=== PATIENT | male | born 1945 | race Caucasian/White ===

== ENCOUNTER 2018-08-12 11:24 | Inpatient (IN) | payer MEDICARE, OTHER ==
[~2018-08-12] VITALS: Ht 175.3 cm; Wt 105.5 kg
[2018-08-12] MEDS ORDERED: METO25TA6 PO (11:34)
[2018-08-12 14:11] LABS: HEMATOCRIT. 42.2 % (42.0-52.0); HEMOGLOBIN. 14.2 g/dL (14.0-18.0); MEAN CORPUSCULAR HEMOGLOBIN 32.1 pg (28.0-32.0); MEAN CORPUSCULAR VOLUME 95.8 fL (80.0-94.0); MEAN PLATELET VOLUME 8.4 fl (7.4-10.4); PLATELET 212 x1000/uL (130-400); RED BLOOD CELL COUNT 4.41 mill/uL (4.7-6.1); RED CELL DISTRIBUTION WIDTH 13.8 % (11.6-14.6)
[2018-08-12 14:17] LABS: CHLORIDE 104 mEq/L (98-107)
[2018-08-12 14:20] LABS: ETHANOL BLOOD < 10 mg/dL
[2018-08-12 14:41] LABS: PLATELET ESTIMATE NORMAL
[2018-08-12 17:03] LABS: CLARITY URINE CLEAR (CLEAR); COLOR URINE YELLOW (YELLOW); KETONES URINE NEGATIVE (NEGATIVE); LEUKOCYTE ESTERASE URINE NEGATIVE (NEGATIVE); NITRITE URINE NEGATIVE (NEGATIVE); OCCULT BLOOD URINE 1+ (NEGATIVE); PH URINE 7.5 (4.5-8.0); PROTEIN URINE 1+ (NEGATIVE); SPECIFIC GRAVITY URINE 1.004 (1.005-1.030); UROBILINOGEN URINE 0.2 E.U./dL (0.2-1.0)
[2018-08-12 17:22] LABS: OPIATES URINE SCREEN NEGATIVE (NEGATIVE)
[2018-08-12 17:23] LABS: *AMPHETAMINES SCREEN URINE NEGATIVE (NEGATIVE); *BARBITURATES SCREEN URINE NEGATIVE (NEGATIVE); *BENZODIAZEPINES SCREEN URINE NEGATIVE (NEGATIVE); *COCAINE SCREEN URINE NEGATIVE (NEGATIVE); CANNABINOID URINE SCREEN NEGATIVE (NEGATIVE); METHADONE URINE SCREEN NEGATIVE (NEGATIVE); PHENCYCLIDINE URINE SCREEN NEGATIVE (NEGATIVE)
[2018-08-12] MEDS ORDERED: CLONIDINE 0.1MG TABLET PO PRN (21:30)
[2018-08-12] MEDS ORDERED: ACETAMINOPHEN 325MG TABLET PO PRN (21:30)
[2018-08-12] MEDS ORDERED: GUAIFENESIN 200MG/10ML SUGAR FREE UDC PO PRN (21:30)
[2018-08-12] MEDS ORDERED: IPRATROPIUM/ALBUTEROL 0.5-3(2.5)MG/3ML NEB INH PRN (21:30)
[2018-08-12] MEDS ORDERED: ONDANSETRON HCL 4MG/2ML INJ IV PRN (21:30)
[2018-08-12 23:45] VITALS: BP 102/75
[2018-08-13 04:00] VITALS: BP 130/66
[2018-08-13 07:08] LABS: BASOPHILS % 0.8 % (0.0-2.0); EOSINOPHILS % 1.5 % (0.0-5.0); HEMATOCRIT. 40.4 % (42.0-52.0); LYMPHOCYTES % 12.7 % (20.0-50.0); MEAN CORPUSCULAR HEMOGLOBIN 33.2 pg (28.0-32.0); MEAN CORPUSCULAR VOLUME 95.9 fL (80.0-94.0); MEAN PLATELET VOLUME 8.5 fl (7.4-10.4); MONOCYTES % 10.9 % (2.0-8.0); NEUTROPHILS % 74.1 % (40.0-76.0); PLATELET 195 x1000/uL (130-400); RED BLOOD CELL COUNT 4.22 mill/uL (4.7-6.1); RED CELL DISTRIBUTION WIDTH 14.1 % (11.6-14.6)
[2018-08-13 07:12] LABS: CHLORIDE 108 mEq/L (98-107)
[2018-08-13 08:00] VITALS: BP 154/78
[2018-08-13] MEDS ORDERED: PNEUMOCOCCAL 23-VAL P-SAC VAC 0.5 ML IM ONE (08:00)
[2018-08-13] MEDS ORDERED: INFLUENZA VIRUS VACCINE(AFLURIA) 0.5ML SYR IM ONE (10:00)
[2018-08-13 12:00] VITALS: BP 149/80
[2018-08-13 16:00] VITALS: BP 150/80
[2018-08-13] MEDS: TRAMADOL 50MG TABLET PO PRN (18:04)
[2018-08-13 20:00] VITALS: BP 153/79
[2018-08-13] MEDS ORDERED: IRON SUCROSE COMPLEX 100 MG/5 ML ML IV NR (20:00)
[2018-08-13] MEDS: VALPROIC ACID 250MG CAPSULE PO SCH (20:47)
[2018-08-13] MEDS: ATORVASTATIN CALCIUM 20MG TABLET PO SCH (20:47)
[2018-08-13] MEDS: RISPERIDONE 1MG TABLET PO SCH (20:48)
[2018-08-13] MEDS: METOPROLOL TARTRATE 25MG TABLET PO SCH (20:48)
[2018-08-13] MEDS: MAGNESIUM/ALUMINUM HYDROXIDE/SIMETHICONE 30ML UDC PO PRN (23:09)
[2018-08-14] VITALS: BP 139/72
[2018-08-14 04:21] VITALS: BP 117/65
[2018-08-14 08:00] VITALS: BP 145/73
[2018-08-14] MEDS ORDERED: PANTOPRAZOLE 40MG DR TABLET PO SCH (09:00)
[2018-08-14] MEDS: DOCUSATE SODIUM 100MG CAPSULE PO SCH ×2 (09:45→18:03)
[2018-08-14] MEDS: AMLODIPINE 2.5MG TABLET PO SCH (09:45)
[2018-08-14] MEDS: CHOLECALCIFEROL (D3) 1000 UNIT TABLET PO SCH (09:45)
[2018-08-14] MEDS: METOPROLOL TARTRATE 25MG TABLET PO SCH ×2 (09:45→21:35)
[2018-08-14] MEDS: PANTOPRAZOLE SODIUM 40 MG/VIAL IV SCH ×2 (09:46→21:34)
[2018-08-14 12:00] VITALS: BP 125/69
[2018-08-14] MEDS: RISPERIDONE 0.25MG TABLET PO SCH (13:08)
[2018-08-14] MEDS: DEXT 5%/0.45% NACL 1000ML 1,000 ML IV SCH ×2 (14:30→22:55)
[2018-08-14] MEDS ORDERED: IBRU140C PO (15:40)
[2018-08-14 16:00] VITALS: BP 117/66
[2018-08-14 16:51] LABS: HEMATOCRIT 39.8 % (42.0-52.0); HEMOGLOBIN 13.6 g/dL (14.0-18.0)
[2018-08-14 16:56] LABS: PARTIAL THROMBOPLASTIN TIME 25.3 sec (23.4-31.0); PROTHROMBIN TIME 10.2 sec (9.1-11.1)
[2018-08-14 17:17] LABS: AMYLASE 87 IU/L (25-115)
[2018-08-14] MEDS: IMBRUVICA 420 MG PO SCH (18:02)
[2018-08-14 18:12] LABS: FOLIC ACID (FOLATE) SERUM 10.7 ng/mL (>5.38)
[2018-08-14 20:00] VITALS: BP 151/73
[2018-08-14] MEDS: ATORVASTATIN CALCIUM 20MG TABLET PO SCH (21:34)
[2018-08-14] MEDS: VALPROIC ACID 250MG CAPSULE PO SCH (21:34)
[2018-08-14] MEDS: RISPERIDONE 1MG TABLET PO SCH (22:55)
[2018-08-15] VITALS: BP 98/56
[2018-08-15 00:22] LABS: HEMATOCRIT 37.6 % (42.0-52.0); HEMOGLOBIN 13.1 g/dL (14.0-18.0)
[2018-08-15 04:00] VITALS: BP 114/61
[2018-08-15 06:26] LABS: HEMATOCRIT. 37.1 % (42.0-52.0); MEAN CORPUSCULAR HEMOGLOBIN 34.5 pg (28.0-32.0); MEAN CORPUSCULAR VOLUME 98.5 fL (80.0-94.0); MEAN PLATELET VOLUME 8.9 fl (7.4-10.4); PLATELET 143 x1000/uL (130-400); RED BLOOD CELL COUNT 3.76 mill/uL (4.7-6.1); RED CELL DISTRIBUTION WIDTH 13.8 % (11.6-14.6)
[2018-08-15] MEDS: DEXT 5%/0.45% NACL 1000ML 1,000 ML IV SCH ×3 (06:26→21:49)
[2018-08-15 06:41] LABS: CHLORIDE 104 mEq/L (98-107)
[2018-08-15] MEDS: METOPROLOL TARTRATE 25MG TABLET PO SCH ×2 (10:01→20:34)
[2018-08-15] MEDS: DOCUSATE SODIUM 100MG CAPSULE PO SCH ×2 (10:02→20:36)
[2018-08-15] MEDS: AMLODIPINE 2.5MG TABLET PO SCH (10:02)
[2018-08-15 11:35] VITALS: BP 120/63
[2018-08-15] MEDS: IMBRUVICA 420 MG PO SCH (13:15)
[2018-08-15] MEDS: RISPERIDONE 0.25MG TABLET PO SCH (13:15)
[2018-08-15] MEDS: CHOLECALCIFEROL (D3) 1000 UNIT TABLET PO SCH (13:15)
[2018-08-15] MEDS: PANTOPRAZOLE SODIUM 40 MG/VIAL IV SCH ×2 (13:15→20:33)
[2018-08-15 13:28] LABS: NUCLEATED RED BLOOD CELLS 1 /100 WBC; PLATELET ESTIMATE NORMAL
[2018-08-15 15:38] VITALS: BP 139/73
[2018-08-15 20:00] VITALS: BP 141/73
[2018-08-15] MEDS: ATORVASTATIN CALCIUM 20MG TABLET PO SCH (20:33)
[2018-08-15] MEDS: VALPROIC ACID 250MG CAPSULE PO SCH (20:34)
[2018-08-15] MEDS: RISPERIDONE 1MG TABLET PO SCH (20:34)
[2018-08-15] MEDS: MAGNESIUM/ALUMINUM HYDROXIDE/SIMETHICONE 30ML UDC PO PRN (21:14)
[2018-08-15] MEDS: TRAMADOL 50MG TABLET PO PRN (21:46)
[2018-08-16] VITALS: BP 123/64
[2018-08-16 04:00] VITALS: BP 120/60
[2018-08-16] MEDS: DEXT 5%/0.45% NACL 1000ML 1,000 ML IV SCH ×2 (05:54→17:44)
[2018-08-16 08:00] VITALS: BP 120/73
[2018-08-16] MEDS: METOPROLOL TARTRATE 25MG TABLET PO SCH ×2 (08:57→21:01)
[2018-08-16] MEDS: PANTOPRAZOLE SODIUM 40 MG/VIAL IV SCH ×2 (10:14→21:01)
[2018-08-16] MEDS: CHOLECALCIFEROL (D3) 1000 UNIT TABLET PO SCH (10:14)
[2018-08-16] MEDS: DOCUSATE SODIUM 100MG CAPSULE PO SCH ×2 (10:14→17:44)
[2018-08-16] MEDS: AMLODIPINE 2.5MG TABLET PO SCH (10:14)
[2018-08-16] MEDS: IMBRUVICA 420 MG PO SCH (10:15)
[2018-08-16 12:00] VITALS: BP 124/71
[2018-08-16] MEDS: RISPERIDONE 0.25MG TABLET PO SCH (12:37)
[2018-08-16 16:00] VITALS: BP 156/74
[2018-08-16] MEDS: TRAMADOL 50MG TABLET PO PRN ×2 (18:35→21:01)
[2018-08-16 20:00] VITALS: BP 165/86
[2018-08-16] MEDS: VALPROIC ACID 250MG CAPSULE PO SCH (21:00)
[2018-08-16] MEDS: ATORVASTATIN CALCIUM 20MG TABLET PO SCH (21:01)
[2018-08-16] MEDS: RISPERIDONE 1MG TABLET PO SCH (21:01)
[2018-08-17] VITALS: BP 152/80
[2018-08-17 04:00] VITALS: BP_SYST 116; BP_SYST 138; BP_DIAS 70; BP_DIAS 72
[2018-08-17] MEDS: DEXT 5%/0.45% NACL 1000ML 1,000 ML IV SCH ×2 (06:15→10:21)
[2018-08-17 08:43] VITALS: BP 121/72
[2018-08-17] MEDS: METOPROLOL TARTRATE 25MG TABLET PO SCH (09:00)
[2018-08-17] MEDS: IMBRUVICA 420 MG PO SCH (09:54)
[2018-08-17] MEDS: DOCUSATE SODIUM 100MG CAPSULE PO SCH (09:54)
[2018-08-17] MEDS: PANTOPRAZOLE SODIUM 40 MG/VIAL IV SCH (09:54)
[2018-08-17] MEDS: AMLODIPINE 2.5MG TABLET PO SCH (09:55)
[2018-08-17] MEDS: CHOLECALCIFEROL (D3) 1000 UNIT TABLET PO SCH (09:55)
[2018-08-17 12:31] VITALS: BP 162/70
[2018-08-17 12:34] VITALS: BP 144/73
[2018-08-17] MEDS: RISPERIDONE 0.25MG TABLET PO SCH (12:53)
[2018-08-17 13:45] VITALS: BP 162/70
== END 2018-08-17 15:37 | DRG 74 ==
LOC: ER 11:24 → 6WST 16:54 → ENRESERV 20:13
PROVIDERS: ADMIT Internal Medicine; ATTEND Internal Medicine
DX: G90.8 Other disorders of autonomic nervous system (principal); R65.10 Systemic inflammatory response syndrome (SIRS) of non-infectious origin without acute organ dysfunction; F20.0 Paranoid schizophrenia; K92.2 Gastrointestinal hemorrhage, unspecified; C88.0 Waldenstrom macroglobulinemia; K76.0 Fatty (change of) liver, not elsewhere classified; Z96.642 Presence of left artificial hip joint; I10 Essential (primary) hypertension; K80.20 Calculus of gallbladder without cholecystitis without obstruction; M25.552 Pain in left hip; M19.90 Unspecified osteoarthritis, unspecified site; W07.XXXA Fall from chair, initial encounter; Y93.89 Activity, other specified; Z85.72 Personal history of non-Hodgkin lymphomas; Y92.89 Other specified places as the place of occurrence of the external cause; Y99.8 Other external cause status; Z79.899 Other long term (current) drug therapy; Y92.481 Parking lot as the place of occurrence of the external cause
CPT/HCPCS: 36415; 73502; 74018; 76700; 80048; 80305; 82140; 82150; 82270; 82607; 82746; 83735; 84484; 85014; 85018; 90686; 90732; 93005; 96372; 96374; 97116; 97163; 97530; 99285; A6261; C9113; G0482; J3490